=== PATIENT | male | born 1980 | race Caucasian/White ===

== ENCOUNTER 2020-07-12 17:58 | Emergency (ER) | payer SELFPAY ==
[~2020-07-12] VITALS: Ht 172.7 cm; Wt 81.6 kg
[2020-07-12 18:00] VITALS: Ht 172.7 cm; Wt 81.6 kg
[2020-07-12 19:34] VITALS: BP 135/88
== END 2020-07-12 19:34 | disposition home or self-care (01) ==
LOC: ED 17:58
DX: U07.1 COVID-19 (principal); Z88.0 Allergy status to penicillin